=== PATIENT | female | born 1970 | race Two or more races ===

== ENCOUNTER 2021-03-20 08:00 | Inpatient (IN) | payer OTHER ==
[~2021-03-20] VITALS: Ht 152.4 cm; Wt 66.2 kg
[2021-03-20] MEDS ORDERED: TENORMIN50 M1 PO (08:59)
[2021-03-22] MEDS ORDERED: PROGESTERONE200 MG (16:03)
[2021-03-22] MEDS ORDERED: MEGESTROL ACETA40 MG (16:03)
== END 2021-03-25 13:28 | disposition home or self-care (01) | DRG 742 ==
LOC: O/R 03-22 05:46 → SURH 03-22 05:46 → OB/GYN 03-22 07:00 → SURH 03-22 17:12
PROVIDERS: ADMIT Obstetrics & Gynecology; ATTEND Obstetrics & Gynecology
PROC: 0TQB0ZZ Repair Bladder, Open Approach (ICD-10-PCS; 2021-03-22)
PROC: 0UU Female Reproductive System, Supplement (ICD-10-PCS; 2021-03-22)
PROC: 0UT90ZL Resection of Uterus, Supracervical, Open Approach (ICD-10-PCS; principal; 2021-03-22 07:00)
DX: N80.0 Endometriosis of uterus (principal); N99.71 Accidental puncture and laceration of a genitourinary system organ or structure during a genitourinary system procedure; N73.6 Female pelvic peritoneal adhesions (postinfective); D25.0 Submucous leiomyoma of uterus; D25.1 Intramural leiomyoma of uterus; D25.2 Subserosal leiomyoma of uterus; N93.9 Abnormal uterine and vaginal bleeding, unspecified; I10 Essential (primary) hypertension

== ENCOUNTER 2021-04-09 12:03 | Outpatient (CLI) | payer OTHER ==
[~2021-04-09 12:03] MED LIST: MEGESTROL ACETA40 MG; PROGESTERONE200 MG; TENORMIN50 M1 PO
== END 2021-04-09 12:18 | disposition home or self-care (01) ==
LOC: TOM 12:03
PROVIDERS: ATTEND Obstetrics & Gynecology
DX: N99.71 Accidental puncture and laceration of a genitourinary system organ or structure during a genitourinary system procedure (principal)

== ENCOUNTER 2021-11-17 13:06 | Inpatient (IN) | payer OTHER ==
[~2021-11-17] VITALS: Ht 152.4 cm; Wt 62.6 kg
--- NOTE | 2021-11-17 13:26 | NUR ---
PTE ALERTA,ESTABLE Y ORIENTADA.ESTA REFIERE QUE DESDE LAS 10AM DEL LAUREN DE HOY COMENZO CON DEBILIDAD EN TODO EL LADO DERECHO.
== END 2021-11-24 15:56 | disposition home or self-care (01) | DRG 65 ==
LOC: ER 13:06 → SEC-K 22:44 → MEDJ 22:44
PROVIDERS: ADMIT Internal Medicine; ATTEND Internal Medicine
PROC: BW28ZZZ Computerized Tomography (CT Scan) of Head (ICD-10-PCS; principal; 2021-11-17)
PROC: B24BZZZ Ultrasonography of Heart with Aorta (ICD-10-PCS; 2021-11-17)
PROC: B030YZZ Magnetic Resonance Imaging (MRI) of Brain using Other Contrast (ICD-10-PCS; 2021-11-17)
PROC: 4A12X4Z Monitoring of Cardiac Electrical Activity, External Approach (ICD-10-PCS; 2021-11-18)
DX: I63.512 Cerebral infarction due to unspecified occlusion or stenosis of left middle cerebral artery (principal); I69.351 Hemiplegia and hemiparesis following cerebral infarction affecting right dominant side; I10 Essential (primary) hypertension; I49.8 Other specified cardiac arrhythmias; Z20.822 Contact with and (suspected) exposure to COVID-19
CPT/HCPCS: 70552

== ENCOUNTER 2023-10-08 23:49 | Emergency (ER) | payer OTHER ==
[~2023-10-08] VITALS: Ht 152.4 cm; Wt 65.8 kg
[2023-10-09] MEDS ORDERED: COZAAR25 MG PO (00:32)
[2023-10-09] MEDS ORDERED: ORPHENADRINE CITRATE 30 MG/ML AMPUL IV STA (01:34)
[2023-10-09 03:48] LABS: PH,URINE 6.5 (5.0-8.0); URINE APPEARANCE Clear; URINE BILIRRUBIN Negative (NEGATIVE); URINE BLOOD Small; URINE COLOR Yellow; URINE GLUCOSE Negative (NEGATIVE); URINE LEUKOCYTE Trace; URINE NITRATE Negative; URINE PROTEIN Negative (NEGATIVE); URINE UROBILINOGEN 0.2 E.U./dl
[2023-10-09 03:51] LABS: HEMATOCRIT 39.4 % (36.0-45.00); HEMOGLOBIN 13.2 g/dL (12.0-15.00); MEAN CELL VOLUME 87.3 fL (80.00-100.00); MEAN CORPUSCULAR HEMOGLOBIN 29.3 pg (27.00-32.0); MEAN CORPUSCULAR HGB CONC 33.6 g/dl (32.0-36.0); PLATELET COUNT 313 K/uL (150-450); RED BLOOD COUNT 4.52 M/uL (4.00-6.00); RED CELL DISTRIBUTION WIDTH 13.4 % (11.5-14.5)
[2023-10-09 03:53] LABS: URINE BACTERIA 1724.6 uL (0.0-1933); URINE EPITHELIAL CELLS 12.5 uL (0.0-38.8); URINE RBC 27.7 uL (0.0-20.8); URINE WBC 12.1 uL (0.0-23.2)
[2023-10-09] MEDS ORDERED: KETOROLAC TROMETHAMINE 60 MG VIAL IM STA (04:16)
[2023-10-09 04:23] LABS: INR 0.96; PARTIAL THROMBOPLASTIN TIME 28.8 SECONDS (22.0-34.0); PROTHROMBIN TIME 10.1 SECONDS (9.0-11.5)
[2023-10-09 05:37] LABS: BILIRUBIN TOTAL 0.37 mg/dL (0.3-1.2); CREATININE SERUM 0.85 mg/dL (0.55-1.02); GFR 69.96; GLOBULINA 4.6 G/DL (2.4-3.5); POTASSIUM 4.23 mEq/L (3.5-5.1); TOTAL PROTEIN 8.6 gm/dL (6.4-8.2)
[2023-10-09] MEDS ORDERED: KETO10TA2 PO (05:43)
[2023-10-09] MEDS ORDERED: NORFLEX100MG PO (05:43)
[2023-10-09] MEDS ORDERED: ASA81 MG PO (05:46)
== END 2023-10-09 05:59 | disposition home or self-care (01) ==
LOC: ER 23:49
PROVIDERS: General Practice
DX: M25.511 Pain in right shoulder (principal); R53.1 Weakness; I10 Essential (primary) hypertension